=== PATIENT | female | born 1985 | race Caucasian/White ===

== ENCOUNTER 2020-01-16 14:58 | Emergency (ER) | payer BC ==
--- NOTE | 2020-01-16 15:26 | EDM.PDOC ---
ED HPI GENERAL MEDICAL PROBLEM - General Chief Complaint: Lower Extremity Injury/Pain Stated Complaint: LEFT ANKLE INJURY/FALL Time Seen by Provider: 01/16/20 15:22 Source of Information: Reports: Patient History Limitations: Reports: No Limitations - History of Present Illness INITIAL COMMENTS - FREE TEXT/NARRATIVE: 34 yo female here with L lateral foot pain after an inversion injury. Here for eval. Onset: Today, Sudden Onset Date: 01/16/20 Duration: Minutes:, Constant Location: Reports: Lower Extremity, Left Quality: Reports: Ache Severity: Moderate Improves with: Reports: Rest Worsens with: Reports: Movement Context: Reports: Trauma Associated Symptoms: Reports: No Other Symptoms Treatments WEALTH MANAGEMENT DIRECTOR: Reports: Other (see below) (none) Left Foot Pain Score (Numeric/FACES): 7 - Related Data Allergies Allergy/AdvReac Type Severity Reaction Status Date / Time No Known Allergies Allergy Verified 01/16/20 15:23 Home Meds: Home Meds Levothyroxine 25 mcg PO DAILY 01/16/20 [History] Prenat 115/Iron Fum/Folic/Dss [ 19 Tablet] 1 tab PO DAILY 01/16/20 [History] Review of Systems - Review of Systems Review Of Systems: See Below Constitutional: Reports: No Symptoms Musculoskeletal: Reports: Foot Pain (L lateral) Skin: Reports: No Symptoms Neurological: Reports: No Symptoms ED EXAM, GENERAL - Physical Exam Exam: See Below Exam Limited By: No Limitations General Appearance: Alert, WD/WN, No Apparent Distress Extremities: Normal Inspection, Normal Range of Motion, No Pedal Edema. No: Non-Tender (Tender only over the lateral L foot.), Pedal Edema, Limited Range of Motion, Increased Warmth, Redness Neurological: Alert, Oriented, CN II-XII Intact, Normal Cognition, No Motor/Sensory Deficits Psychiatric: Normal Affect, Normal Mood Skin Exam: Warm, Dry, Intact, Normal Color, No Rash Course - Vital Signs Last Recorded V/S: Last Vital Signs Temp 36.7 C 01/16/20 15:21 Pulse 83 01/16/20 15:21 Resp 15 01/16/20 15:21 BP 139/76 01/16/20 15:21 Pulse Ox 97 01/16/20 15:21 - Orders/Labs/Meds Orders: Active Orders 24 hr Category Date Time Status Foot Comp Min 3V Lt [CR] Stat Exams 01/16/20 15:21 Taken - Radiology Interpretation Free Text/Narrative:: L foot X-ray-neg Departure - Departure Time of Disposition: 15:55 Disposition: Home, Self-Care 01 Condition: Good Clinical Impression: Sprain of foot, left Qualifiers: Encounter type: initial encounter Qualified Code(s): S93.602A - Unspecified sprain of left foot, initial encounter - Discharge Information *PRESCRIPTION DRUG MONITORING PROGRAM REVIEWED*: No *COPY OF PRESCRIPTION DRUG MONITORING REPORT IN PATIENT AGUILAR: No Referrals: PCP,None [Primary Care Provider] - Forms: ED Department Discharge Additional Instructions: Crutch walking with progressive weight bearing as tolerated. Ibuprofen and/or acetaminophen as needed for pain relief. Recheck if not better in a week. Sepsis Event Note (ED) - Focused Exam Vital Signs: Vital Signs Temp Pulse Resp BP Pulse Ox 01/16/20 15:21 36.7 C 83 15 139/76 97 01/16/20 15:13 36.7 C 83 15 139/76 97 - My Orders Last 24 Hours: My Active Orders 01/16/20 15:21 Foot Comp Min 3V Lt [CR] Stat - Assessment/Plan Last 24 Hours: My Active Orders 01/16/20 15:21 Foot Comp Min 3V Lt [CR] Stat
--- NOTE | 2020-01-16 15:57 | CR ---
FOOT RIGHT 3 views CLINICAL HISTORY:Injury FINDINGS:There is no fracture or osseous lesion. Articular surfaces are smooth. There is some osteophytic change at the first MTP joint with bunion formation. Impression: No fracture or dislocation
== END 2020-01-16 15:58 | disposition home or self-care (01) ==
LOC: JP.ED 14:58
DX: S93.602A Unspecified sprain of left foot, initial encounter (principal); Z79.899 Other long term (current) drug therapy; X50.9XXA Other and unspecified overexertion or strenuous movements or postures, initial encounter
CPT/HCPCS: 73630-26-LT; 73630-LT; 99283

== ENCOUNTER 2022-12-29 08:16 | Emergency (ER) | payer BC ==
[2022-12-29 09:33] LABS: HEMATOCRIT 37.2 % (34.3-46.0); HEMOGLOBIN 12.4 g/dL (11.2-15.5)
== END 2022-12-29 11:35 | disposition home or self-care (01) ==
LOC: JP.ED 08:16
DX: O02.1 Missed abortion (principal); E03.9 Hypothyroidism, unspecified; Z79.899 Other long term (current) drug therapy
CPT/HCPCS: 36415; 76817; 76817-26; 84702; 85014; 85018; 86900; 86901; 99284